=== PATIENT | female | born 1940 | race Asian ===

== ENCOUNTER 2022-08-14 11:52 | Outpatient (CLI) | payer MEDICARE, OTHER, SELFPAY ==
--- NOTE | 2022-08-14 12:00 | CRLHL7_ITS ---
For Patients: As a result of the Century Cures Act, medical imaging exams and procedure reports are released immediately into your electronic medical record. You may view this report before your referring provider. If you have questions, please contact your health care provider. INDICATION: Evaluate for hip fracture. History of right thigh pain. TECHNIQUE: 27 millicuries of technetium-99m labeled MDP has been given intravenously. Three phase bone scan has been performed of the bilateral femurs. FINDINGS: There is symmetric blood flow to the bilateral femurs. No significant abnormal uptake is seen on blood pool imaging. Delayed imaging demonstrates increased activity in the region of the right hip joint. Mild activity in the femoral neck region of the right noted. There is mild activity in the contralateral left hip joint. The remaining visualized right femur is within normal limits. The distal aspect of the femurs has not been imaged bilaterally. IMPRESSION: 1. Negative three-phase bone scan to the bilateral lower extremities. 2. There is increased activity identified in the region of the right hip joint. Finding may all be explained due to degenerative change. This is more prominent on the right than the left. There is mild activity in the femoral neck region on the right. The remaining visualized right femur demonstrates no other abnormal uptake. Dictated by Juni Joseph MD @ 08/14/2022 4:32:49 PM (Electronically Signed)
== END 2022-08-14 11:53 | disposition home or self-care (01) ==
LOC: NM 11:54
PROVIDERS: PCP Internal Medicine; Visit Provider Internal Medicine
DX: M25.551 Pain in right hip (principal)
CPT/HCPCS: 78315; A9503

== ENCOUNTER 2022-09-24 14:09 | Outpatient (CLI) | payer MEDICARE, OTHER, SELFPAY ==
[2022-09-24 17:32] LABS: Chloride* 106 mmol/L (96-114); Sodium* 141 mmol/L (135-149)
[2022-09-24 17:33] LABS: Potassium* 4.7 mmol/L (3.6-5.1)
[2022-09-24 17:35] LABS: Alanine Aminotransferase* 12 U/L (4-35); Alkaline Phosphatase* 57 U/L (40-150); Aspartate Amino Transferase* 24 U/L (12-35); Bilirubin Total* 0.4 mg/dL (0.1-1.5); Blood Urea Nitrogen* 27 mg/dL (7-30); Carbon Dioxide* 30 mmol/L (20-32); Creatinine* 1.1 mg/dL (0.5-1.5); Estimated Glomerular Filt Rate 50 ml/min; Glucose* 93 mg/dL (60-115)
[2022-09-24 17:36] LABS: Calcium* 9.7 mg/dL (8.4-10.6)
== END 2022-09-24 14:10 | disposition home or self-care (01) ==
LOC: NFLDREF 14:10
PROVIDERS: PCP Internal Medicine; Visit Provider Internal Medicine
DX: Z01.818 Encounter for other preprocedural examination (principal)
CPT/HCPCS: 80053

== ENCOUNTER 2022-10-13 10:17 | Outpatient (CLI) | payer MEDICARE, OTHER, SELFPAY | END 2022-10-13 10:18 | disposition home or self-care (01) | PROVIDERS: PCP Internal Medicine; Visit Provider Orthopaedic Surgery Sports Medicine | DX: Z01.818 Encounter for other preprocedural examination (principal) | CPT/HCPCS: 36415; 86850; 86900; 86901 ==

== ENCOUNTER 2022-10-15 06:46 | Day surgery (SDC) | payer MEDICARE, OTHER, SELFPAY ==
--- NOTE | 2022-10-12 12:52 | PT.OPEX ---
PT [place] [facility] PT [facility] Start: 10/11/22 14:56 Freq: Status: Active Protocol: Document 10/11/22 14:59 SHAHBAZ (Rec: 10/11/22 15:03 SHAHBAZ [id number]) E-signed By Stephen Watson DPT, MS Physical Therapy Outpatient Evaluation Insurance Information Recert Due Date 01/09/23 Insurance Name Medicare B,Other; See Comments Insurance Information/Comments Medical Diagnosis Pre-op R JANE Treating Diagnosis R hip pain, decreased R LE ROM , imbalance, gait dysfunction and R LE weakness. Subjective Subjective Pt is an 81 y.o female who presents to PT prior to R anterior JANE on 10/15/22 at [facility] . Describes R hip, groin and thigh pain have gradually increased over the past 18 months. R hip joint space decreased significantly after a fall ~1 month ago. Has felt very weak with decreased energy after an illness 2-3 weeks ago with severe diarrhea but was negative for covid. Uses 4WW on painful days and must limp without an AD. Pt lives with her in a multi-level home with 3 steps with 1 railing to enter her home. Bedroom and bathroom on second level with a railing on the R. Currently performs stairs with step-to pattern. Pt hopes to return to walking for exercise and performing normal daily activities after surgery. PMH includes osteoporosis and R hip OA. AGGR factors: walking, standing, sleeping, stair climbing, uneven surfaces. ALLEV factors: rest, Tylenol, ice. Pain Comments Current Work Status Retired Occupation Retired nurse Preferred Name Ayjanna Precautions Therapy Limitations/Systems Review Not Limited Objective Functional Test Performed & Score LEFS 10 Assessment Assessment/Impression Pt responded well to introduction of pre-op and post-op HEP today with fatigue and no elevation in R hip sxs . Good quality of QS and SLR with pt encouraged to perform her HEP regularly prior to surgery. Good home setup with help available for pt following surgery. She will resume PT following R THAs and we will re-evaluate pt following surgery. Primary Functional Limitations Walking, standing, sleeping, stair climbing, uneven surfaces. Plan of Care Rehabilitation Potential Excellent Physical Therapy Goals Short-term goals to be completed in 1 week: 1. Pt will be independent and compliant with her HEP in preparation for surgery. Coordination/Communication With Referral Source Treatment Plan/Direct Interventions Gait Training,Manual Therapy, Neuromuscular Re-ed, Therapeutic Exercises Frequency/Duration 1 visit prior to surgery then 1-2x per week for least 8-12 visits, decreasing visit frequency as able following surgery. Patient Will Be Discharged From Therapy Completion of LTG(s),Skills Plateau,Independent w/HEP, Independently Progressing Evaluation Billing Untimed Code Treatment Minutes 28 Complexity Moderate Certification Information Initial Certification Date 10/11/22 Ending Certification Date 01/09/23 Provider Signature Shows Agreement With POC & Medical Necessity Physician Signature & Date Requested Please Sign/Date Here Physician Comment/Change : Physician NPI Number #
[2022-10-15] VITALS (30 sets, daily range): BP systolic 110–149; BP diastolic 62–88; PULSE 61–79; RESP 10–20; TEMP 35.7–36.6; O2SAT 83–99; BMI 24.0
[2022-10-15] MEDS: OXYCODONE (CR) 10 MG TAB.ER.12H PO (07:10)
[2022-10-15] MEDS: ACETAMINOPHEN 500 MG TABLET 1000 MG PO ×2 (07:10→16:57)
[2022-10-15] MEDS: CELECOXIB 200 MG CAPSULE PO ×2 (07:10→20:42)
[2022-10-15] MEDS: SODIUM CHLORIDE 0.9 % (FLUSH) 10 ML SYRINGE IVF (07:15)
[2022-10-15] MEDS: LACTATED RINGERS 1000 ML 1,000 ML 100 ML IV ×2 (07:15→10:08)
--- NOTE | 2022-10-15 07:27 | CRLHL7_ITS ---
For Patients: As a result of the Cures Act, medical imaging exams and procedure reports are released immediately into your electronic medical record. You may view this report before your referring provider. If you have questions, please contact your health care provider. Indication: POST OP RIGHT TOTAL HIP Technique: AP hip center pelvis and lateral view right hip Findings/Impression: Hardware from a right total hip arthroplasty is in satisfactory position. Bone alignment is normal. No sign of acute fracture. Postop changes are within normal limits. Dictated by Renato Fletcher MD @ 10/15/2022 1:15:48 PM (Electronically Signed)
--- NOTE | 2022-10-15 08:15 | CRLHL7_ITS ---
For Patients: As a result of the Cures Act, medical imaging exams and procedure reports are released immediately into your electronic medical record. You may view this report before your referring provider. If you have questions, please contact your health care provider. Indication: Hip replacement surgery Technique: AP hip fluoroscopic image. Fluoroscopy time 52.1 seconds. Findings/Impression: Hardware from a right total hip arthroplasty is in satisfactory position. Dictated by Renato Fletcher MD @ 10/16/2022 9:24:58 AM (Electronically Signed)
[2022-10-15] MEDS: MIDAZOLAM HCL 1 MG/ML inj IVP (08:26)
[2022-10-15] MEDS: fentaNYL 100 MCG/2 ML inj IVP (08:26)
--- NOTE | 2022-10-15 08:35 | SUR.PREOP ---
TIME?OUT:?0825 PT/Neil ARMANDO RN/Hunter VELEZ MDA?VERIFICATION?OF?SURGICAL?SITE,?PROCEDURE,?AND?CONSENT OBTAINED?PRIOR?TO?INVASIVE?PROCEDURE.
[2022-10-15] MEDS: CEFAZOLIN 2 GM in 0.9 % SODIUM CHLORIDE Mini-bag 100 ML IVPB (09:49)
[2022-10-15] MEDS: TRANEXAMIC ACID 100 MG/ML INJ 1000 MG IV (09:53)
--- NOTE | 2022-10-15 11:02 | P.NB_ITS ---
Nerve Block Nerve Block Time Seen by Provider: 08:30 Date Seen: 10/15/22 Type of block requested by surgeon for post-operative analgesia: JACK/LFCN Side: right Time out performed: Yes Verification of patient name: Yes Verification of date of : Yes Site marking: site marked Name of person performing procedure: Jordan Continuous monitoring Was continuous monitoring of O2 sat, B/P, engine monitor, recorded every 15 minutes?: Yes Procedure Checklist: sterile prep, needles and gloves Ultrasound guided. Images saved: Yes Medications given in 5ml increments after negative aspiration: Ropivicaine %: 0.5 mL: 30 Needle gauge: 20 Decadron (mg): 10 Precedex (mcg): 25 Patient tolerated procedure well: Yes Additional comments: Needle noted below psoas tendon needle noted adjacent to LFCN Block Charges Block Charge (with Pro Fee): Other Periph Nerve Block Use of Ultrasound Machine for Block: Yes- US Guidance/pain block
--- NOTE | 2022-10-15 11:59 | W.ANESCHARGE ---
Anesthesia Charges Start Date/Time Anesthesia Start Date: 10/15/22 Anesthesia Start Time: 09:39 Stop Date/Time Anesthesia Stop Date: 10/15/22 Anesthesia Stop Time: 11:58
--- NOTE | 2022-10-15 11:59 | W.ANESCHARGE ---
Anesthesia Charges Start Date/Time Anesthesia Start Date: 10/15/22 Anesthesia Start Time: 09:39 Stop Date/Time Anesthesia Stop Date: 10/15/22 Anesthesia Stop Time: 11:58 Summary Extremes of Age - Over 70 or under 1: MDA
[2022-10-15] MEDS: LACTATED RINGERS 1000 ML 1,000 ML 35 ML IV (12:44)
--- NOTE | 2022-10-15 15:18 | P.IMCN_ITS ---
Date of Consult Consult date: 10/15/22 Requesting Physician: Orthopedics Primary Care Provider: Cris Puente MD Consult Narrative Reason for consult: 82-year-old female seen for management of medical problems after surgery Narrative: Deana Miles is a 82 year old female underwent right total hip arthroplasty today with Dr. Banks. Postoperatively she reports doing fairly well. She has quite a bit of numbness in her right leg from a nerve block. She reports minimal pain. No nausea, dyspnea, chills. Preoperatively she reports her generally doing well except for longstanding right hip pain which caused her to limp when she walked. She also had a recent gastrointestinal illness that resolved itself in the last 2 days. She had nausea and watery diarrhea. She had 1 emesis. No significant abdominal pain She reports in the last 2 days she has been eating normally and had has had normal bowel function. No blood in her stool. No previous history of gastrointestinal problems. Preop physical identified no significant perioperative concerns. Previous surgery was laparoscopy for infertility about 50 years ago. She thinks she had adverse reaction to anesthesia at that time. She also had a tonsillectomy. No history of bleeding or clotting problems. Review of Systems Narrative: Patient reports doing well at the time I see her. No other recent concerns except as noted above. PFSH [facility] Medical History (Updated 10/15/22 @ 15:38 by Redd Andujar MD) Atrophic vaginitis Diarrhea Glaucoma (2019) Hyperlipidemia Lumbar degenerative disc disease Osteoporosis Surgical History H/O laparoscopy History of tonsillectomy (03/27/12) History of total right hip arthroplasty Family History Father Heart problem COPD (chronic obstructive pulmonary disease) Mother Heart problem Brother Aortic valve replaced Kidney disease Sister Lupus Social History (Updated 10/15/22 @ 15:36 by Redd Andujar MD) Narrative: She lives with her in [place]. They have a house with multiple levels. One step to get into the house from the garage. Three steps to get from the entry to the kitchen. Nine steps to get from the kitchen to the bedroom and bathroom. She does not smoke. She rarely drinks alcohol. No recreational drug use. is healthcare power of insurance attorney. Code status is full Smoking Status: Never smoker Do you use any of these nicotine containing products: None How often do you have a drink containing alcohol: 2-4 times a month Alcohol type: beer How many standard drinks containing alcohol do you have on a typical day: 1 or 2 AUDIT-C Alcohol total score: 2 Non-prescribed substance use: denies use Caffeine: Yes (coffee, 1-2 cups/day) Little interest or pleasure in doing things: several days Feeling down, depressed, or hopeless: several days Meds Home Medications and Allergies Home Medications Medication Instructions Recorded Confirmed Type biotin 5,000 mcg sublingual tablet 5,000 mcg sublingual QDAY 07/24/22 10/15/22 History brimonidine 0.15 % eye drops 1 drp ophthalmic (eye) BID 07/24/22 10/15/22 History calcium carbonate 500 mg calcium 500 mg PO DAILY 07/24/22 10/15/22 History (1,250 mg) chewable tablet (Calcium 500) dorzolamide 22.3 mg-timolol 6.8 1 drp ophthalmic (eye) BID 07/24/22 10/15/22 History mg/mL eye drops latanoprost 0.005 % eye drops 1 drp ophthalmic (eye) HS 07/24/22 10/15/22 History estradiol 10 mcg vaginal tablet 10 mcg vaginal 2XW PRN 07/31/22 10/15/22 History (Yuvafem) alendronate 70 mg tablet 70 mg PO .WEEKLY 10/11/22 10/15/22 History Allergies Allergy/AdvReac Type Severity Reaction Status Date / Time Sulfa (Sulfonamide Allergy shock Verified 10/15/22 07:01 Antibiotics) Exam Narrative: Exam Narrative: She is alert pleasant and appears in no distress. She gives her own history. Eyes normal. Oropharynx normal. Neck is supple without mass or adenopathy. Respirations are clear to auscultation. Cardiovascular: S1, S2, regular rate and rhythm. No murmur gallop or rub. Abdomen: Bowel sounds active. Abdomen is soft without tenderness or mass. She has diminished sensation in her right thigh and leg. She moves her foot and ankle on the right normally. Intact pulses bilaterally. No edema. Const: Vital Signs, click to edit/add: Vital Signs - 24 hr 10/15/22 07:21 02/06/23 08:27 10/15/22 08:30 Temperature 97.9 F Pulse Rate 70 67 61 Pulse Rate [Pulse Oximeter] Respiratory Rate 16 16 16 Blood Pressure 130/74 131/78 132/74 Blood Pressure [AR M LEFT] Pulse Oximetry 95 99 99 Oxygen Delivery Me thod Room Air Nasal Cannula Nasal Cannula Oxygen Flow Rate 2 2 10/15/22 08:45 10/15/22 11:55 10/15/22 12:00 Temperature 96.9 F L Pulse Rate 63 64 64 Pulse Rate [Pulse Oximeter] Respiratory Rate 16 14 18 Blood Pressure 111/67 134/81 121/77 Blood Pressure [AR M LEFT] Pulse Oximetry 96 91 91 Oxygen Delivery Me thod Nasal Cannula Room Air Oxygen Flow Rate 2 10/15/22 12:05 10/15/22 12:10 10/15/22 12:15 Temperature Pulse Rate 64 66 67 Pulse Rate [Pulse Oximeter] Respiratory Rate 14 16 20 Blood Pressure 115/75 121/75 120/78 Blood Pressure [AR M LEFT] Pulse Oximetry 90 90 97 Oxygen Delivery Me thod Oxygen Flow Rate 10/15/22 12:20 10/15/22 12:25 10/15/22 12:35 Temperature 96.5 F L Pulse Rate 65 64 67 Pulse Rate [Pulse Oximeter] Respiratory Rate 10 L 13 14 Blood Pressure 120/80 119/78 126/76 Blood Pressure [AR M LEFT] Pulse Oximetry 91 91 90 Oxygen Delivery Me thod Oxygen Flow Rate 10/15/22 12:45 10/15/22 12:55 10/15/22 13:19 Temperature 96.2 F L Pulse Rate 69 62 Pulse Rate [Pulse Oximeter] 67 Respiratory Rate 13 12 16 Blood Pressure 117/71 135/82 Blood Pressure [AR M LEFT] 143/83 H Pulse Oximetry 91 90 90 Oxygen Delivery Me thod Room Air Oxygen Flow Rate 10/15/22 14:04 10/15/22 13:05 10/15/22 13:15 Temperature 96.2 F L Pulse Rate 62 Pulse Rate [Pulse Oximeter] 64 66 Respiratory Rate 16 16 14 Blood Pressure Blood Pressure [AR M LEFT] 132/85 143/83 H 140/80 H Pulse Oximetry 95 89 Oxygen Delivery Me thod Nasal Cannula Room Air Room Air Oxygen Flow Rate 1 2 10/15/22 13:30 10/15/22 13:45 10/15/22 14:15 Temperature Pulse Rate Pulse Rate [Pulse Oximeter] 68 72 70 Respiratory Rate 16 16 16 Blood Pressure Blood Pressure [AR M LEFT] 143/88 H 141/76 H 132/85 Pulse Oximetry 88 92 94 Oxygen Delivery Me thod Nasal Cannula Nasal Cannula Nasal Cannula Oxygen Flow Rate 1 1 1 10/15/22 14:35 Temperature Pulse Rate Pulse Rate [Pulse Oximeter] 70 Respiratory Rate 16 Blood Pressure Blood Pressure [AR M LEFT] 145/81 H Pulse Oximetry 95 Oxygen Delivery Me thod Nasal Cannula Oxygen Flow Rate 1 Documenting provider has reviewed patient's vital signs: yes Assessment and Plan Assessment and plan (1) History of total right hip arthroplasty: Problem comment: 10/15/22 Status: Acute (2) Osteoarthritis of right hip: Problem comment: progressed to severe, [id number] Status: Chronic (3) Diarrhea: Problem comment: Diarrhea illness for 2 weeks prior to surgery 10/15/2022. Symptoms resolved 2 days prior to surgery. Status: Acute Plan Provided routine postoperative pain management and therapy. Anticipate discharge to home tomorrow. Will need to address mobility in her home which requires doing steps. Monitor for gastrointestinal issues with her recent history of diarrheal illness. Total time spent is 45 minutes, 30 minutes in coordination of care discussing with patient and and other providers ongoing postoperative management.
[2022-10-15] MEDS: CEFAZOLIN 1 GM in 0.9 % SODIUM CHLORIDE Mini-bag 100 ML IVPB (17:06)
[2022-10-15] MEDS: SENNOSIDES 1 TAB TABLET 2 TAB PO (20:42)
[2022-10-15] MEDS: LACTATED RINGERS 1000 ML 1,000 ML 75 ML IV (20:44)
[2022-10-15] MEDS: DORZOLAMIDE/TIMOLOL 2-0.5% OPHTH 1 DROP EYE-BOTH (20:44)
[2022-10-15] MEDS: BRIMONIDINE 0.15% EYE-BOTH (20:44)
[2022-10-15] MEDS: EYE EYE-BOTH (20:44)
[2022-10-15] MEDS: LATANOPROST 0.005% OPHTH 1 DROP EYE-BOTH (20:44)
[2022-10-16] MEDS: CEFAZOLIN 1 GM in 0.9 % SODIUM CHLORIDE Mini-bag 100 ML IVPB ×2 (00:10→10:01)
[2022-10-16] MEDS: ACETAMINOPHEN 500 MG TABLET 1000 MG PO (02:46)
[2022-10-16 03:00] VITALS: BP 108/58; PULSE 73; RESP 18; TEMP 36.5; O2SAT 93
[2022-10-16 06:40] LABS: Hematocrit 31.9 % (33.0-51.0); Hemoglobin* 10.4 gm/dL (12.0-16.0); Immature Granulocytes Pct Auto 0.4 %; Lymphocytes Percent Auto 4.4 % (20-44); Mean Corpuscular HGB Conc 33 gm/dL (32-36); Mean Corpuscular Hemoglobin 29 pg (26-34); Mean Corpuscular Volume 89 fL (80-100); Monocytes Percent Auto 9.6 % (0.0-11.0); Neutrophils Percent Auto 85.6 % (42.0-72.0); Platelet Count* 194 K/uL (140-440); RDW Coefficient of Variation % 13.5 % (11.5-15.5); Red Blood Count 3.57 m/uL (4.00-5.20); White Blood Count* 13.58 K/uL (4.50-11.00)
[2022-10-16 06:43] LABS: Slide Review Reflex No
[2022-10-16 06:53] LABS: Potassium* 4.1 mmol/L (3.6-5.1); Sodium* 136 mmol/L (135-149)
[2022-10-16 06:56] LABS: Blood Urea Nitrogen* 19 mg/dL (7-30); Estimated Glomerular Filt Rate 56 ml/min
--- NOTE | 2022-10-16 07:31 | PC.NURSE ---
Shift note: Pt is pleasant and cooperate with treatment. Hesitant to take pain medication, rate pain level between 2 and 4. Dressing appears clean and dry. A1 with walker and GB to bedside commode. Saline locked.
[2022-10-16 07:45] VITALS: BP 95/56; PULSE 88; PULSE 97; RESP 16; TEMP 36.6; O2SAT 97
--- NOTE | 2022-10-16 09:07 | PM.ORPRC ---
Procedure Note Date of procedure: 10/15/22 Procedure: PREOPERATIVE DIAGNOSIS: 1. Right hip osteoarthritis, severe, primary POSTOPERATIVE DIAGNOSIS: 1. Right hip osteoarthritis, severe, primary PROCEDURE: 1. Right total hip arthroplasty-anterior approach 2. 41194 - intraoperative fluoroscopy up to 1 hour. SURGEON: Kp Banks MD. MURAL PAINTER: Virgilio Wall PA-C; SILVIA Kay - Of note, a skilled field administrative assistant was critical for this case to aid in patient positioning, tissue retraction, limb manipulation/positioning, and closure. ANESTHESIA: Spinal anesthetic EBL: 300 mL IMPLANTS: DePuy J&J uncemented total hip [place] cup size 50, single cancellous acetabular screw, hole eliminator, +0 neutral liner Actis stem, high offset, size 5 +1 mm ceramic 32mm head COMPLICATIONS: None evident INDICATIONS: The patient is a pleasant 82-year-old female who has experienced severe right hip pain and difficulty bearing weight. Workup included x-rays which revealed severe osteoarthrosis in the hip. Given the deformity, the dysfunction, and the pain, as well as the failure of nonoperative management, recommendation was made for surgery. FINDINGS: Large effusion upon entering the joint. Full-thickness chondral loss femoral head broadly. Osteophytes around the acetabulum including inferiorly as well as femoral head/neck junction. DESCRIPTION OF PROCEDURE: Following a thorough discussion of risks, benefits, and alternatives consent was obtained and the right hip was marked. The patient was brought to the operating room and placed supine on the operating table. Induction of anesthesia was undertaken. 1 g IV Ancef and 1 g tranexamic acid was administered within 1 hr of incision preoperatively. Proper time-out was performed identifying proper patient, site, procedure. The operative extremity was prepped and draped in the appropriate sterile fashion using ChloraPrep after the patient was positioned on the Hoffman table with head in neutral alignment and all bony prominences well padded. C-arm fluoroscopic imaging was utilized to confirm proper pelvis rotation and position, and to get true AP films of both the contralateral left, and the affected right hip. This is for comparison. A longitudinal incision was made starting approximately 1 cm distal to the ASIS, and 3-4 cm lateral. The incision was extended distally aiming toward the lateral border the patella. Sharp incision through skin and bovie cautery through the subcutaneous tissue allowed identification of the TFL fascia. This was sharply divided, and the fascia bluntly released from the muscle fibers as we dissected medial. Upon coming to the medial border, we were able to retract the TFL laterally, and penetrated the deeper fascia and identify the crossing circumflex vessels. These were ligated/cauterized. The rectus was elevated from the capsule, and retractors placed laterally and medially along the femoral neck to help with visualization of the capsule. We then performed an inverted T capsulotomy. The capsule was tagged for later repair. Retractors were placed inside the capsule. The femoral neck was visualized after releasing medially down to the lesser trochanter, along the saddle laterally, and up onto the acetabulum. The femoral neck cut was made in line with our preoperative templating. The head was removed in a single piece, and sized. We turned our attention to acetabular preparation. Initially, the labrum was resected from around the perimeter, the pulvinar was excised, allowing us to visualize the false wall. We started the reaming with a 43 mm reamer. This was medialized down to the true wall. We then enlarged our reamers sequentially up to one size less than the selected cup size. We trialed at the same size and found it to have an excellent fit. The selected cup was then opened, inserted, and impacted in line with the goal of 40? of abduction, and 20-25? of anteversion. This was confirmed on C-arm fluoroscopic imaging to be in the appropriate/goal position. Once the cup was placed we placed a hole eliminator and a liner consistent with preop planning. Attention was turned to the femoral preparation. The limb was extended, externally rotated, and adducted. The posteromedial capsule was released, as retractors were placed allowing excellent access to the proximal femur. Initially a snuff box finisher was followed by canal finder followed by various broaches. We broached sequentially up to the size noted above, found it to have excellent rotational control, and trialing various heads and necks, revealed that appropriate neck offset, and the above noted head size provided the greatest stability, and tenriism of length, and offset. C-arm fluoroscopic imaging confirmed position of the stem, as well as leg lengths, which were compared with the pre procedure all fluoroscopic images. Trial implants were removed, the real femoral stem inserted, as was the appropriate head. After reducing, the leg was placed through range of motion and stability was confirmed anterior, posterior, and lateral. A 3 min Betadine soak was then performed, and thorough irrigation with normal saline followed. Closure of the capsule was performed with #1 PDS. Bleeding was confirmed to be controlled at this stage, and the TFL fascia was closed with #0 strata fix. Subcutaneous, and subcuticular closure was performed with 2-0 Vicryl and 4-0 Monocryl, respectively. Dressings were applied, and the patient was awoken from anesthesia and transferred the PACU in stable condition. A skilled field administrative assistant was critical for this case to aid in patient positioning, tissue retraction, acetabular and proximal femoral exposure, limb manipulation/positioning, dislocation/relocation, patient safety, and closure. PLAN: 1. Weight bear as tolerated operative extremity. 2. 23 hr perioperative antibiotics. 3. Ice. 4. PT/OT consults for ambulation assistance/mobility education. 5. Social work consult for discharge planning. 6. DVT prophylaxis with at SCDs, Naun Mo[place]e, and Xarelto x5 days followed by aspirin for a total of 1 month..
[2022-10-16] MEDS: RIVAROXABAN 10 MG TABLET PO (10:03)
[2022-10-16] MEDS: DORZOLAMIDE/TIMOLOL 2-0.5% OPHTH 1 DROP EYE-BOTH (10:05)
[2022-10-16] MEDS: CELECOXIB 200 MG CAPSULE PO (10:06)
[2022-10-16] MEDS: EYE EYE-BOTH (10:10)
[2022-10-16] MEDS: BRIMONIDINE 0.15% EYE-BOTH (10:10)
[2022-10-16 11:00] VITALS: BP 101/55; PULSE 84; RESP 16; O2SAT 95
--- NOTE | 2022-10-16 11:01 | PM.IMPN1 ---
Progress Note: A&P Assessment and plan (1) History of total right hip arthroplasty: Problem details: JANE-AA (10/15/2022, Dr. Banks) Status: Acute (2) Diarrhea: Problem details: Diarrhea illness for 2 weeks prior to surgery 10/15/2022. Symptoms resolved 2 days prior to surgery. Status: Acute Plan 82-year-old doing very well after right total hip arthroplasty. She is doing well with therapy and motivated to go home today. While blood pressure is soft, she notes that it normally runs this way at home. We discussed bowel movements, recent GI illness, pain control, and keeping up with fluids. Subjective Time Seen by Provider: 10:04 Date Seen: 10/16/22 Interval history: Raven's blood pressure is a little lower today. She says she is a little lightheaded, but thinks that is not from blood pressure, but instead from not getting enough sleep last night. She said overall she feels really well and her blood pressure sometimes runs that at home as well. She has not been eating much pain medication and she is doing well in therapy today. Exam Narrative: Exam Narrative: General: No acute distress. Awake, alert, oriented x3. Mild pallor. No jaundice. Oropharynx: Clear. Mucous membranes moist. Cardiovascular: Regular rate and rhythm. No murmurs, gallops, or rubs. Respiratory: Clear to auscultation bilaterally. No wheezes or crackles. Const: Vital Signs, click to edit/add: Vital Signs - 24 hr 10/15/22 11:55 10/15/22 12:00 10/15/22 12:05 Temperature 96.9 F L Pulse Rate 64 64 64 Pulse Rate [Left A pical] Pulse Rate [Pulse Oximeter] Respiratory Rate 14 18 14 Blood Pressure 134/81 121/77 115/75 Blood Pressure [AR M LEFT] Pulse Oximetry 91 91 90 Oxygen Delivery Me thod Room Air Oxygen Flow Rate 10/15/22 12:10 10/15/22 12:15 10/15/22 12:20 Temperature Pulse Rate 66 67 65 Pulse Rate [Left A pical] Pulse Rate [Pulse Oximeter] Respiratory Rate 16 20 10 L Blood Pressure 121/75 120/78 120/80 Blood Pressure [AR M LEFT] Pulse Oximetry 90 97 91 Oxygen Delivery Me thod Oxygen Flow Rate 10/15/22 12:25 10/15/22 12:35 10/15/22 12:45 Temperature 96.5 F L Pulse Rate 64 67 69 Pulse Rate [Left A pical] Pulse Rate [Pulse Oximeter] Respiratory Rate 13 14 13 Blood Pressure 119/78 126/76 117/71 Blood Pressure [AR M LEFT] Pulse Oximetry 91 90 91 Oxygen Delivery Me thod Oxygen Flow Rate 10/15/22 12:55 10/15/22 13:19 10/15/22 14:04 Temperature 96.2 F L Pulse Rate 62 Pulse Rate [Left A pical] Pulse Rate [Pulse Oximeter] 67 64 Respiratory Rate 12 16 16 Blood Pressure 135/82 Blood Pressure [AR M LEFT] 143/83 H 132/85 Pulse Oximetry 90 90 95 Oxygen Delivery Me thod Room Air Nasal Cannula Oxygen Flow Rate 1 10/15/22 13:05 10/15/22 13:15 10/15/22 13:30 Temperature 96.2 F L Pulse Rate 62 Pulse Rate [Left A pical] Pulse Rate [Pulse Oximeter] 66 68 Respiratory Rate 16 14 16 Blood Pressure Blood Pressure [AR M LEFT] 143/83 H 140/80 H 143/88 H Pulse Oximetry 89 88 Oxygen Delivery Me thod Room Air Room Air Nasal Cannula Oxygen Flow Rate 2 1 10/15/22 13:45 10/15/22 14:15 10/15/22 14:35 Temperature Pulse Rate Pulse Rate [Left A pical] Pulse Rate [Pulse Oximeter] 72 70 70 Respiratory Rate 16 16 16 Blood Pressure Blood Pressure [AR M LEFT] 141/76 H 132/85 145/81 H Pulse Oximetry 92 94 95 Oxygen Delivery Me thod Nasal Cannula Nasal Cannula Nasal Cannula Oxygen Flow Rate 1 1 1 10/15/22 17:29 10/15/22 15:00 10/15/22 15:33 Temperature Pulse Rate Pulse Rate [Left A pical] Pulse Rate [Pulse Oximeter] 75 79 69 Respiratory Rate 18 Blood Pressure Blood Pressure [AR M LEFT] 139/62 149/81 H Pulse Oximetry 96 Oxygen Delivery Me thod Nasal Cannula Nasal Cannula Oxygen Flow Rate 1 1 10/15/22 16:07 10/15/22 16:31 10/15/22 17:00 Temperature 97.4 F L Pulse Rate Pulse Rate [Left A pical] Pulse Rate [Pulse Oximeter] 62 63 75 Respiratory Rate 16 18 Blood Pressure Blood Pressure [AR M LEFT] 138/68 140/77 H 145/84 H Pulse Oximetry 96 93 Oxygen Delivery Me thod Nasal Cannula Nasal Cannula Nasal Cannula Oxygen Flow Rate 1 1 1 10/15/22 20:25 10/15/22 23:00 10/16/22 03:00 Temperature 97.3 F L 96.9 F L 97.7 F Pulse Rate Pulse Rate [Left A pical] Pulse Rate [Pulse Oximeter] 75 63 73 Respiratory Rate 18 18 18 Blood Pressure Blood Pressure [AR M LEFT] 110/66 111/62 108/58 L Pulse Oximetry 83 L 93 93 Oxygen Delivery Me thod Room Air Nasal Can nula Room Air Room Air Oxygen Flow Rate 10/16/22 07:45 Temperature 97.8 F Pulse Rate Pulse Rate [Left A pical] 88 Pulse Rate [Pulse Oximeter] 97 Respiratory Rate 16 Blood Pressure Blood Pressure [AR M LEFT] 95/56 L Pulse Oximetry 97 Oxygen Delivery Me thod Room Air Oxygen Flow Rate Labs Labs: Laboratory Results - last 24 hr 10/16/22 10/16/22 05:50 05:50 WBC 13.58 H RBC 3.57 L Hgb 10.4 L Hct 31.9 L MCV 89 MCH 29 MCHC 33 RDW Coeff of Derrick 13.5 Plt Count 194 Neut % (Auto) 85.6 H Lymph % (Auto) 4.4 L [place] % (Auto) 9.6 Eos % (Auto) 0.0 Baso % (Auto) 0.0 Neut # (Auto) 11.60 H Lymph # (Auto) 0.60 L [place] # (Auto) 1.30 H Eos # (Auto) 0.00 Baso # (Auto) 0.00 Sodium 136 Potassium 4.1 BUN 19 Creatinine 1.0 Estimated Creat Clear 31.60 Estimated GFR 56
--- NOTE | 2022-10-16 11:10 | PC.SOCIAL ---
Pt. plans to discharge home with spouse support. Pt. did well with therapy no additional resources needed at discharge.
[2022-10-16 11:24] VITALS: BP 135/82; PULSE 62; RESP 16; TEMP 36.6
--- NOTE | 2022-10-16 12:23 | PM.ORPN ---
Subjective Subjective Date Seen: 10/16/22 Principal diagnosis: Status postop day 1, right total hip arthroplasty - anterior approach Interval history: Patient reports doing well. No acute events over night. She comments that her right leg felt wobbly yesterday, and her right knee felt as if it could give out. Pain managed with scheduled /PRN medications and ice - she denies needing oxycodone. DVT prophylaxis rivaroxaban, bilateral knee high Naun stockings, and SCDs. Denies fevers, chills, aches, N/V, CP, SOB/ROCHA, or lightheadedness. Ortho Exam Narrative Exam Narrative: -Patient appears comfortable in bed; no apparent acute distress. She is working with occupational therapy -Alert and oriented times 3 -Operative hip swollen; soft tissues supple; no obvious erythema. Ecchymosis minimal. Warmth appropriate -Surgical dressing clean, dry, intact; no obvious drainage, no erythematous streaking peripheral to the bandage -Bilateral calves soft and supple; no significant swelling, edema, tenderness, erythema, discoloration, warmth, or palpable cords -2+ DP/PT pulses, intact dermatomes and myotomes distally (5/5 strength). Positive numbness about the lateral femoral cutaneous nerve distribution. -right knee feels stable to varus and valgus stress, mild warmth, mild swelling, likely residual from the hip swelling. No pain to palpation throughout the knee. Const Vital Signs, click to edit/add: Vital Signs - 24 hr 10/15/22 12:25 10/15/22 12:35 10/15/22 12:45 Temperature 96.5 F L Pulse Rate 64 67 69 Pulse Rate [Left Apical] Pulse Rate [Pulse Oximeter] Respiratory Rate 13 14 13 Blood Pressure 119/78 126/76 117/71 Blood Pressure [ARM LEFT] Pulse Oximetry 91 90 91 Oxygen Delivery Method Oxygen Flow Rate 10/15/22 12:55 10/15/22 13:19 10/15/22 14:04 Temperature 96.2 F L Pulse Rate 62 Pulse Rate [Left Apical] Pulse Rate [Pulse Oximeter] 67 64 Respiratory Rate 12 16 16 Blood Pressure 135/82 Blood Pressure [ARM LEFT] 143/83 H 132/85 Pulse Oximetry 90 90 95 Oxygen Delivery Method Room Air Nasal Cannula Oxygen Flow Rate 1 10/15/22 13:05 10/15/22 13:15 10/15/22 13:30 Temperature 96.2 F L Pulse Rate 62 Pulse Rate [Left Apical] Pulse Rate [Pulse Oximeter] 66 68 Respiratory Rate 16 14 16 Blood Pressure Blood Pressure [ARM LEFT] 143/83 H 140/80 H 143/88 H Pulse Oximetry 89 88 Oxygen Delivery Method Room Air Room Air Nasal Cannula Oxygen Flow Rate 2 1 10/15/22 13:45 10/15/22 14:15 10/15/22 14:35 Temperature Pulse Rate Pulse Rate [Left Apical] Pulse Rate [Pulse Oximeter] 72 70 70 Respiratory Rate 16 16 16 Blood Pressure Blood Pressure [ARM LEFT] 141/76 H 132/85 145/81 H Pulse Oximetry 92 94 95 Oxygen Delivery Method Nasal Cannula Nasal Cannula Nasal Cannula Oxygen Flow Rate 1 1 1 10/15/22 17:29 10/15/22 15:00 10/15/22 15:33 Temperature Pulse Rate Pulse Rate [Left Apical] Pulse Rate [Pulse Oximeter] 75 79 69 Respiratory Rate 18 Blood Pressure Blood Pressure [ARM LEFT] 139/62 149/81 H Pulse Oximetry 96 Oxygen Delivery Method Nasal Cannula Nasal Cannula Oxygen Flow Rate 1 1 10/15/22 16:07 10/15/22 16:31 10/15/22 17:00 Temperature 97.4 F L Pulse Rate Pulse Rate [Left Apical] Pulse Rate [Pulse Oximeter] 62 63 75 Respiratory Rate 16 18 Blood Pressure Blood Pressure [ARM LEFT] 138/68 140/77 H 145/84 H Pulse Oximetry 96 93 Oxygen Delivery Method Nasal Cannula Nasal Cannula Nasal Cannula Oxygen Flow Rate 1 1 1 10/15/22 20:25 10/15/22 23:00 10/16/22 03:00 Temperature 97.3 F L 96.9 F L 97.7 F Pulse Rate Pulse Rate [Left Apical] Pulse Rate [Pulse Oximeter] 75 63 73 Respiratory Rate 18 18 18 Blood Pressure Blood Pressure [ARM LEFT] 110/66 111/62 108/58 L Pulse Oximetry 83 L 93 93 Oxygen Delivery Method Room Air Nasal Cannula Room Air Room Air Oxygen Flow Rate 10/16/22 07:45 10/16/22 11:24 10/16/22 11:00 Temperature 97.8 F 97.8 F Pulse Rate 62 Pulse Rate [Left Apical] 88 84 Pulse Rate [Pulse Oximeter] 97 84 Respiratory Rate 16 16 16 Blood Pressure 135/82 Blood Pressure [ARM LEFT] 95/56 L 101/55 L Pulse Oximetry 97 95 Oxygen Delivery Method Room Air Room Air Oxygen Flow Rate Assessment and Plan Assessment and plan (1) History of total right hip arthroplasty: Problem details: POD 1 right JANE-AA (10/15/2022, Dr. Banks) Status: Acute (2) Diarrhea: Problem details: Diarrhea illness for 2 weeks prior to surgery 10/15/2022. Symptoms resolved 2 days prior to surgery. Status: Acute Plan - Complete 23 hour perioperative antibiotics. - PT/OT consult for education and assistance. - Social work consult for discharge planning - Prescribed analgesics as needed - DVT prophylaxis: Rivaroxaban, bilateral knee high Naun Hose stockings and SCDs - Anticipation is for discharge to home with spouse today 10/16/2022 if the patient remains medically stable, pain is controlled, and they are safe with mobilization.
--- NOTE | 2022-10-16 12:26 | PM.DS1 ---
DS: Providers Provider Date Seen: 10/16/22 Date of admission: Med/Surg Recovery 10/15/2022 Primary care physician: Cris Puente MD Consults: 10/15/22 13:04 Consult to Occupational Therapy [CONS] Routine Comment: Reason(s) for OT Consult:: ADLs Prior to Discharge Any Restrictions?:: No Restrictions Comment: Consult to Physical Therapy [CONS] Routine Comment: Ambulate in the choudhary today Reason(s) for PT Consult:: Evaluate and Treat Any Restrictions?:: No Restrictions Comment: Nursing Activity Consult to Physician [CONS] Routine Comment: Consulting Provider: Hospitalists Has provider been notified: No Consult to [employer] [CONS] Routine Comment: Reason for Consult:: Discharge Planning Needs Attending Physician on discharge: Kp Banks MD Date of Discharge: 10/16/22 DS: Diagnosis Discharge Diagnosis (1) History of total right hip arthroplasty: Status: Acute Problem details: POD 1 right JANE-AA (10/15/2022, Dr. Banks) DS: Summary Hospital Course Hospital Course: The patient has a history of right hip osteoarthritis, primary, severe. After appropriate preoperative evaluation, the patient underwent right total hip arthroplasty. Postoperatively given anticoagulation for deep vein thrombosis prophylaxis. They progressed to PT/OT and were felt ready and prepared for discharge to home with appropriate pain medication and anticoagulation medications. Status at Discharge Functional status at discharge: uses cane/walker Overall status at discharge: patient is progressing back to baseline Time Spent with Patient Time attestation: Total time spent providing and/or coordinating discharge services: Time spent: Less than 30 minutes Exam Const: Vital Signs, click to edit/add: Vital Signs - 24 hr 10/15/22 12:35 10/15/22 12:45 10/15/22 12:55 Temperature Pulse Rate 67 69 62 Pulse Rate [Left A pical] Pulse Rate [Pulse Oximeter] Respiratory Rate 14 13 12 Blood Pressure 126/76 117/71 135/82 Blood Pressure [AR M LEFT] Pulse Oximetry 90 91 90 Oxygen Delivery Me thod Oxygen Flow Rate 10/15/22 13:19 10/15/22 14:04 10/15/22 13:05 Temperature 96.2 F L 96.2 F L Pulse Rate 62 Pulse Rate [Left A pical] Pulse Rate [Pulse Oximeter] 67 64 Respiratory Rate 16 16 16 Blood Pressure Blood Pressure [AR M LEFT] 143/83 H 132/85 143/83 H Pulse Oximetry 90 95 Oxygen Delivery Me thod Room Air Nasal Cannula Room Air Oxygen Flow Rate 1 2 10/15/22 13:15 10/15/22 13:30 10/15/22 13:45 Temperature Pulse Rate Pulse Rate [Left A pical] Pulse Rate [Pulse Oximeter] 66 68 72 Respiratory Rate 14 16 16 Blood Pressure Blood Pressure [AR M LEFT] 140/80 H 143/88 H 141/76 H Pulse Oximetry 89 88 92 Oxygen Delivery Me thod Room Air Nasal Cannula Nasal Cannula Oxygen Flow Rate 1 1 10/15/22 14:15 10/15/22 14:35 10/15/22 17:29 Temperature Pulse Rate Pulse Rate [Left A pical] Pulse Rate [Pulse Oximeter] 70 70 75 Respiratory Rate 16 16 18 Blood Pressure Blood Pressure [AR M LEFT] 132/85 145/81 H Pulse Oximetry 94 95 Oxygen Delivery Me thod Nasal Cannula Nasal Cannula Oxygen Flow Rate 1 1 10/15/22 15:00 10/15/22 15:33 10/15/22 16:07 Temperature 97.4 F L Pulse Rate Pulse Rate [Left A pical] Pulse Rate [Pulse Oximeter] 79 69 62 Respiratory Rate 16 Blood Pressure Blood Pressure [AR M LEFT] 139/62 149/81 H 138/68 Pulse Oximetry 96 96 Oxygen Delivery Me thod Nasal Cannula Nasal Cannula Nasal Cannula Oxygen Flow Rate 1 1 1 10/15/22 16:31 10/15/22 17:00 10/15/22 20:25 Temperature 97.3 F L Pulse Rate Pulse Rate [Left A pical] Pulse Rate [Pulse Oximeter] 63 75 75 Respiratory Rate 18 18 Blood Pressure Blood Pressure [AR M LEFT] 140/77 H 145/84 H 110/66 Pulse Oximetry 93 83 L Oxygen Delivery Me thod Nasal Cannula Nasal Cannula Room Air Nasal Can nula Oxygen Flow Rate 1 1 10/15/22 23:00 10/16/22 03:00 10/16/22 07:45 Temperature 96.9 F L 97.7 F 97.8 F Pulse Rate Pulse Rate [Left A pical] 88 Pulse Rate [Pulse Oximeter] 63 73 97 Respiratory Rate 18 18 16 Blood Pressure Blood Pressure [AR M LEFT] 111/62 108/58 L 95/56 L Pulse Oximetry 93 93 97 Oxygen Delivery Me thod Room Air Room Air Room Air Oxygen Flow Rate 10/16/22 11:24 10/16/22 11:00 Temperature 97.8 F Pulse Rate 62 Pulse Rate [Left A pical] 84 Pulse Rate [Pulse Oximeter] 84 Respiratory Rate 16 16 Blood Pressure 135/82 Blood Pressure [AR M LEFT] 101/55 L Pulse Oximetry 95 Oxygen Delivery Me thod Room Air Oxygen Flow Rate DS: Data Data Completed and Pending Labs on day of discharge: Labs from last 24 hours 10/16/22 10/16/22 05:50 05:50 WBC 13.58 H RBC 3.57 L Hgb 10.4 L Hct 31.9 L MCV 89 MCH 29 MCHC 33 RDW Coeff of Derrick 13.5 Plt Count 194 Neut % (Auto) 85.6 H Lymph % (Auto) 4.4 L [place] % (Auto) 9.6 Eos % (Auto) 0.0 Baso % (Auto) 0.0 Neut # (Auto) 11.60 H Lymph # (Auto) 0.60 L [place] # (Auto) 1.30 H Eos # (Auto) 0.00 Baso # (Auto) 0.00 Sodium 136 Potassium 4.1 BUN 19 Creatinine 1.0 Estimated Creat Clear 31.60 Estimated GFR 56 Discharge Plan Discharge Disposition: Home, Self-Care Discharging Surgeon: Kp Banks Follow-Up Appointment: 1 week PO with MIGEL Prescriptions: New aspirin 81 mg tablet,delayed release (DR/EC) 81 mg PO BID Qty: 50 0RF Rx Instructions: Medication to help prevent blood clots postoperatively; take TWICE daily. acetaminophen 500 mg capsule 500 - 1,000 mg PO Q6H MDD 4000mg PRNQty: 100 0RF rivaroxaban 10 mg tablet 10 mg PO DAILY Qty: 4 0RF Rx Instructions: Medication for deep vein clot prevention post surgery. Complete this medication before starting Aspirin. sennosides-docusate sodium [Senna-S] 8.6-50 mg tablet 1 - 4 tab-cap PO BID PRN (Reason: constipation) Qty: 60 0RF Rx Instructions: Hold medication if experiencing loose stools. oxycodone 5 mg tablet 2.5 - 5 mg PO Q4-6H MDD 6 PRN (Reason: pain) Qty: 20 0RF Rx Instructions: Take as needed for postop pain: 2.5mg mild pain, 5mg moderate-severe pain; wean as tolerated. Continued latanoprost 0.005 % drops 1 drp ophthalmic (eye) HS Label Comments: Instill 1 drop into both eyes at bedtime dorzolamide-timolol 22.3-6.8 mg/mL drops 1 drp ophthalmic (eye) BID Label Comments: INSTILL ONE DROP INTO EACH EYE TWICE DAILY brimonidine 0.15 % drops 1 drp ophthalmic (eye) BID Label Comments: Instill 1 drop into both eyes twice daily biotin 5,000 mcg tablet, sublingual 5,000 mcg sublingual QDAY calcium carbonate [Calcium 500] 500 mg calcium (1,250 mg) tablet,chewable 500 mg PO DAILY estradiol [Yuvafem] 10 mcg tablet 10 mcg vaginal 2XW PRN alendronate 70 mg tablet 70 mg PO .WEEKLY Activity Level: Activity as Tolerated, Weight Bearing as Tolerated, Use Cane and Use Walker Activity Detail: Wound: ?Do not remove original dressing; we will remove this at first postop visit in 1 week. Only remove dressing if integrity is in question. ?No immersing wound in water; showering okay; light scrub with your hand and body soap, rinse, dab dry ?Sutures are under the skin, will dissolve; allow surgical glue to come off naturally; do not scrub the wound or apply ointments/lotions ?Call our office with any redness that streaks, excessive drainage from the wound, or wound gapping. Ice/Elevate: ?Ice as needed for swelling and discomfort (cryocuff or ice pack); elevate frequently above the heart JOAN socks: ?Wear for 1 month, remove for 1 hour 3 times per day ?These are frustrating to take on/off, but are important for blood clot prevention for 1 month after surgery Blood Clot Prevention (DVT): ?Medication: Rivaroxaban, and transition to 81 mg aspirin by mouth twice daily (total one month of protection). Driving: ?Do not drive while taking narcotic pain medication ?Anticipate 4-6 weeks no driving if operative leg is driving leg Dental: ?No elective dental work for 6 months post-op. If there is an urgent/emergent dental need, contact our office for an antibiotic prescription. Smoking/Alcohol: ?Do not smoke; do no drink alcohol especially when taking postoperative oral narcotic medication Seek Care from you Primary Care Provider if you experience the following issues in the postoperative phase and beyond: ?Bacterial infections such as: pneumonia, bacterial skin infection (cellulitis), UTI, high fever, chills unrelated to the operative body part - call your primary care physician urgently for treatment in hopes to protect your health and the metal implant. Referrals: ?PT, OT per patient preference - evaluate treat total hip arthroplasty protocol (gait training, ROM, ADLs) Follow up: ?Ortho surgeon follow-up in 6 weeks; repeat radiographs AP pelvis, cross-table lateral operative hip ?PA-C visit in 1 week *If there are any acute concerns regarding your surgery, please call our orthopedic clinic ([phone]) Discharge Diet: Regular Patient Instructions: Acetaminophen (By mouth), Aspirin (By mouth), Oxycodone, Rapid Release (By mouth), Rivaroxaban (By mouth), Senna (By mouth) (Sen, Senna-lax), Total Hip Replacement (DC) Forms: Work/School Release Follow-up: Cris Puente MD [Primary Care Provider] - Virgilio Wall PA-C [Physician Day Care Home Provider] - 10/25/22 8:50 am Discharge Orders: Discharge Order (Routine); Ordered 10/16/22 Ordered By: Virgilio Wall
--- NOTE | 2022-10-16 14:05 | PC.NURSE ---
Pt eval by OT, PT, Dr. Riggs, Virgilio ortho PA and myself this am. Pt hesitant to take pain medications, rating her pain 0 plus out of 10. Tolerating regular diet, adequate I and O. counseled by Ed in PT about need for SBA with AYA when ambulating d/to tendency of right knee to buckle. Third dose of IV Cefazolin infused w/o difficulty. IV site discontinued right forearm. Pt verbalized understanding of d/c diagnosis, home meds, pain management plans, f/up appts, wound care and sx to report urgently to physician. Pt d/c'ed with her personal belongings via w/c @ 12:44 pm to her own home with spouse Aubrey as transportation
== END 2022-10-16 12:44 | disposition home or self-care (01) ==
LOC: OR 06:47 → MEDSURG 06:52
PROVIDERS: PCP Internal Medicine; Visit Provider Orthopaedic Surgery Sports Medicine
PROC: (CPT 27130; principal; 2022-10-15 08:15)
DX: M16.11 Unilateral primary osteoarthritis, right hip (principal); R19.7 Diarrhea, unspecified
CPT/HCPCS: 27130; 01214; 36415; 64450; 73501; 76000; 76942; 82565; 84132; 84295; 84520; 85025; 97110; 97116; 97161; 97162; 97165; 97530; 97535; 99100; A9270; C1713; C1776; J0690; J1100; J2250; J2370; J2405; J2704; J2795; J3010; J7120

== ENCOUNTER 2022-10-16 17:38 | Emergency (ER) | payer MEDICARE, OTHER, SELFPAY ==
[2022-10-16 17:48] VITALS: BP 135/70; PULSE 70; TEMP 36.6; O2SAT 99; BMI 22.3
--- NOTE | 2022-10-16 18:05 | ED_ITS ---
HPI - General Adult General Time Seen by Provider: 18:05 Date Seen: 10/16/22 Chief complaint: Fall/Minor Trauma Stated complaint: fell after hip replacment Time Seen by Provider: 10/16/22 18:04 Source: patient and RN notes reviewed Mode of arrival: ambulatory (With walker) Limitations: no limitations History of Present Illness HPI narrative: Patient is an 82-year-old female that was just discharged after a right hip replacement from the hospital today. She was at home, using her walker to get into the chair when she fell. She lost her balance. She states she did not get close enough to the chair. She has increased pain in the right upper leg. She states she injured or sprained her ankle doing this 2 but the ice that right away. She took some Tylenol just prior to coming in. Declines any need for pain medicine. She did not hit her head, no loss of consciousness. She does not hurt in her arms her upper body or her abdomen. Nothing was injured on her left side. Related Data Home Medications Medication Instructions Recorded Confirmed biotin 5,000 mcg sublingual tablet 5,000 mcg sublingual QDAY 07/24/22 10/15/22 brimonidine 0.15 % eye drops 1 drp ophthalmic (eye) BID 07/24/22 10/15/22 calcium carbonate 500 mg calcium 500 mg PO DAILY 07/24/22 10/15/22 (1,250 mg) chewable tablet (Calcium 500) dorzolamide 22.3 mg-timolol 6.8 1 drp ophthalmic (eye) BID 07/24/22 10/15/22 mg/mL eye drops latanoprost 0.005 % eye drops 1 drp ophthalmic (eye) HS 07/24/22 10/15/22 estradiol 10 mcg vaginal tablet 10 mcg vaginal 2XW PRN 07/31/22 10/15/22 (Yuvafem) alendronate 70 mg tablet 70 mg PO .WEEKLY 10/11/22 10/15/22 Previous Rx's Medication Instructions Recorded acetaminophen 500 mg capsule 500 - 1,000 mg PO Q6H PRN #100 caps 10/16/22 aspirin 81 mg tablet,delayed 81 mg PO BID #50 tabs 10/16/22 release oxycodone 5 mg tablet 2.5 - 5 mg PO Q4-6H PRN pain #20 10/16/22 tabs rivaroxaban 10 mg tablet 10 mg PO DAILY #4 tabs 10/16/22 sennosides 8.6 mg-docusate sodium 1 - 4 tab-cap PO BID PRN 10/16/22 50 mg tablet (Senna-S) constipation #60 tabs Allergies Allergy/AdvReac Type Severity Reaction Status Date / Time Sulfa (Sulfonamide Allergy shock Verified 10/15/22 07:01 Antibiotics) Review of Systems Status of ROS: Reports: 6 or more systems reviewed and unremarkable except as noted in History and below PFSH PFSH Surgical History H/O laparoscopy History of hip replacement History of tonsillectomy (03/27/12) Family History Father Heart problem COPD (chronic obstructive pulmonary disease) Mother Heart problem Brother Aortic valve replaced Kidney disease Sister Lupus Social History Narrative: She lives with her in [place]. They have a house with multiple levels. One step to get into the house from the garage. Three steps to get from the entry to the kitchen. Nine steps to get from the kitchen to the bedroom and bathroom. She does not smoke. She rarely drinks alcohol. No recreational drug use. is healthcare power of associate attorney. Code status is full Smoking Status: Never smoker Do you use any of these nicotine containing products: None How often do you have a drink containing alcohol: 2-4 times a month Alcohol type: beer How many standard drinks containing alcohol do you have on a typical day: 1 or 2 AUDIT-C Alcohol total score: 2 Non-prescribed substance use: denies use Caffeine: Yes (coffee, 1-2 cups/day) Little interest or pleasure in doing things: several days Feeling down, depressed, or hopeless: several days Exam Const: Vital Signs, click to edit/add: Vital Signs - 24 hr 10/16/22 17:48 Temperature 97.9 F Pulse Rate [Pulse Oximeter] 70 Blood Pressure [Ri ght Upper Arm] 135/70 Pulse Oximetry 99 Oxygen Delivery Me thod Room Air Documenting provider has reviewed patient's vital signs: yes Common normals: no apparent distress, oriented x3, no limitations, healthy appearing, alert and well nourished General appearance: cooperative, comfortable, well kempt and well developed Nutritional appearance: thin Other: Patient is lying in the bed in exam room 2, looks very comfortable and is certainly pleasant. HENMT: Common normals: normocephalic, head/scalp atraumatic and hearing grossly normal bilaterally Head and scalp: normocephalic and atraumatic Eye: Common normals: PERRL, EOMs intact bilaterally, conjunctivae normal and no scleral icterus Conjunctiva: conjunctiva(e) normal Pupil: PERRL Neck & C-Spine: Common normals: full ROM, supple and no JVD Resp: Common normals: normal respiratory effort, no retractions, no use of accessory muscles and clear to auscultation bilaterally Auscultation: clear to auscultation bilaterally Cardio: Common normals: no JVD, regular rate, regular rhythm, S1 normal heart sound, S2 normal heart sound, no gallops, no clicks and no murmurs Rate: regular rate Rhythm: regular rhythm Heart sounds: S1 normal and S2 normal GI: Common normals: Normal to inspection, nondistended, normoactive bowel sounds present, soft to palpation, non-tender, no hepatosplenomegaly and no masses Palpation: soft and no hepatosplenomegaly Extremity: Other: Her legs have equal length. She gently can roll her right leg back and forth without any pain. The surgical site is covered with a dressing, no concerns with the wound at this time. She complains of pain in the mid portion of her femur area. The upper thigh a is generally swollen and would be from postsurgical status. She cannot straight leg lift her leg off the bed but has not reportedly done this or been able to do this since surgery. Patella seems to be in a normal alignment, no pain about her knee joint or effusion at this time. She is not tender when I palpate down the tibia or fibula. Her ankle has no swelling, does not have any general tenderness when I palpate through the ankle but does state that it did hurt at home. Neurovascular distally is intact. Can mobilize the toes without any difficulty, no pain over the metatarsals or midfoot. Neuro: Milana Coma Scale: document GCS findings Milana coma scale eye opening: Spontaneous (4) [place] coma scale verbal response: Orientated (5) Milana coma scale motor response: Obey commands (6) Milana coma scale total score: 15 Common normals: oriented x3 Sensorium/orientation: alert Psych: Appearance: well kempt Course Course Hospital Course: We will look at pelvis and right hip, right femur and her right ankle. She is not apparently dislocated on my clinical exam. With her having significant femur pain, do wonder about underlying fracture that she could have sustained. Will rule out fracture in her right ankle as well. She declines pain management at this time and does look comfortable to me. Reevaluation(s) Reevaluation #1: Reviewed negative films with patient and her , will discharge to home. Time: 19:40 Consultations Consultation #1: Spoke with ortho CATINA Curtis. There was air on the postoperative images from her surgery. At this time, we are going to discharge her to home with ongoing out patient observation. No concern for infection. She does have postoperative follow-up coming up soon per Kirsten. Time: 19:39 Vital Signs Vital signs: Initial Vital Signs Temperature 97.9 F 10/16/22 17:48 Temperature Source Temporal Artery Scan 10/16/22 17:48 Pulse Rate 70 10/16/22 17:48 Blood Pressure 135/70 10/16/22 17:48 Blood Pressure Mean 91 10/16/22 17:48 Blood Pressure Position Sitting 10/16/22 17:48 Pulse Oximetry 99 10/16/22 17:48 Oxygen Delivery Method 10/16/22 17:48 Vital Signs Temperature 97.9 F 10/16/22 17:48 Pulse Rate 70 10/16/22 17:48 Blood Pressure 135/70 10/16/22 17:48 Pulse Oximetry 99 10/16/22 17:48 Oxygen Delivery Method 10/16/22 17:48 Temperature 97.9 F 10/16/22 17:48 Pulse Rate 70 10/16/22 17:48 Blood Pressure 135/70 10/16/22 17:48 Pulse Oximetry 99 10/16/22 17:48 Oxygen Delivery Method 10/16/22 17:48 Medical Decision Making Imaging Data X-ray right hip and pelvis: Attestation: I have reviewed the pertinent imaging results. Radiologist's impression: Patient: MICHAEL COLE Facility:[facility] Patient ID:?[id number] Site Patient ID:?[id number]. Site :?[id number] Study:?XRay Pelvis -10/16/2022 6:48:58 PM Ordering Physician:Latonia Kennedy Final Report: INDICATION: Fall and injury, status post right hip replacement yesterday. TECHNIQUE: AP pelvis. COMPARISON: Pelvis and right hip radiographs 10/15/2022. FINDINGS: No acute fracture identified. The hips appear normally aligned. Right total hip arthroplasty appears intact and stable in position. Postoperative soft tissue gas about the right hip. The sacroiliac joints are normal in appearance. IMPRESSION: 1. No acute findings. 2. Intact right JANE with postoperative soft tissue gas. Dictated by Zabrina Cummins MD @ 10/16/2022 7:11:52 PM (Electronic Signature) X-ray right femur: Attestation: I have reviewed the pertinent imaging results. Radiologist's impression: Patient: MICHAEL COLE Facility:[facility] Patient ID:?[id number] Site Patient ID:?[id number]. Site :?[id number] Study:?XRay Extremity Right FEMUR 2V-10/16/2022 6:49:53 PM Ordering Physician:?Rigo Kennedy Final Report: INDICATION: Fall and injury, status post right hip replacement yesterday. TECHNIQUE: Right femur 4 views. COMPARISON: Pelvis and right hip radiographs 10/15/2022. FINDINGS: No acute fracture or dislocation. Right total hip arthroplasty appears intact and stable in position. No radiographic evidence of loosening. Soft tissue gas about the right hip is likely postoperative in nature. There is also a large amount of soft tissue gas extending throughout the right thigh musculature. No knee joint effusion. Spurring of the patella. IMPRESSION: 1. No acute fracture. 2. Intact right JANE without evidence of hardware failure. 3. Large amount of soft tissue gas extending throughout the right thigh musculature. Correlate clinically for signs of infection. Dictated by Zabrina Cummins MD @ 10/16/2022 7:16:05 PM (Electronic Signature) X-ray right ankle: Attestation: I have reviewed the pertinent imaging results. Radiologist's impression: Patient: MICHAEL COLE Facility:?[facility] Patient ID:?[id number] Site Patient ID:?[id number]. Site :?[id number] Study:?XRay Extremity Right ANKLE 3 VIEW-10/16/2022 6:49:21 PM Ordering Physician:Latonia Kennedy Final Report: IMPRESSION: Fall and injury. TECHNIQUE: Right ankle 3 views. COMPARISON: None. FINDINGS: The posterior calcaneus is not fully imaged on lateral view. No acute fracture or dislocation. Ankle mortise is symmetric. Subchondral cystic change in the medial talar dome may be degenerative in nature. Soft tissues are unremarkable. IMPRESSION: No acute findings. Dictated by Zabrina Cummins MD @ 10/16/2022 7:18:43 PM (Electronic Signature) Critical Care Time Critical Care Time Critical Care Time: No Discharge Plan Discharge Clinical Impression: Status post total replacement of right hip, Fall Patient Disposition: Home, Self-Care Condition: Stable Additional Instructions: Continue to use your walker at home. Continue to follow postoperative recommendations from the Orthopedic discharge summary. No changes in the postoperative plan or medicines. Prescriptions: No Action latanoprost 0.005 % drops 1 drp ophthalmic (eye) HS Label Comments: Instill 1 drop into both eyes at bedtime dorzolamide-timolol 22.3-6.8 mg/mL drops 1 drp ophthalmic (eye) BID Label Comments: INSTILL ONE DROP INTO EACH EYE TWICE DAILY brimonidine 0.15 % drops 1 drp ophthalmic (eye) BID Label Comments: Instill 1 drop into both eyes twice daily biotin 5,000 mcg tablet, sublingual 5,000 mcg sublingual QDAY calcium carbonate [Calcium 500] 500 mg calcium (1,250 mg) tablet,chewable 500 mg PO DAILY estradiol [Yuvafem] 10 mcg tablet 10 mcg vaginal 2XW PRN alendronate 70 mg tablet 70 mg PO .WEEKLY aspirin 81 mg tablet,delayed release (DR/EC) 81 mg PO BID Qty: 50 0RF Rx Instructions: Medication to help prevent blood clots postoperatively; take TWICE daily. acetaminophen 500 mg capsule 500 - 1,000 mg PO Q6H MDD 4000mg PRNQty: 100 0RF rivaroxaban 10 mg tablet 10 mg PO DAILY Qty: 4 0RF Rx Instructions: Medication for deep vein clot prevention post surgery. Complete this medication before starting Aspirin. sennosides-docusate sodium [Senna-S] 8.6-50 mg tablet 1 - 4 tab-cap PO BID PRN (Reason: constipation) Qty: 60 0RF Rx Instructions: Hold medication if experiencing loose stools. oxycodone 5 mg tablet 2.5 - 5 mg PO Q4-6H MDD 6 PRN (Reason: pain) Qty: 20 0RF Rx Instructions: Take as needed for postop pain: 2.5mg mild pain, 5mg moderate-severe pain; w velia as tolerated. Follow Up/Referrals: Cris Puente MD [Primary Care Provider] - Stand Alone Forms: [employer] Info Instructions
--- NOTE | 2022-10-16 18:11 | XR_ITS ---
Patient: MICHAEL COLE Facility:?[facility] Patient ID:?[id number] Site Patient ID:?[id number]. Site :?[id number] Study:?XRay-Extremity Right FEMUR 2V-10/16/2022 6:49:53 PM Ordering Physician:Latonia Kennedy Final Report: INDICATION: Fall and injury, status post right hip replacement yesterday. TECHNIQUE: Right femur 4 views. COMPARISON: Pelvis and right hip radiographs 10/15/2022. FINDINGS: No acute fracture or dislocation. Right total hip arthroplasty appears intact and stable in position. No radiographic evidence of loosening. Soft tissue gas about the right hip is likely postoperative in nature. There is also a large amount of soft tissue gas extending throughout the right thigh musculature. No knee joint effusion. Spurring of the patella. IMPRESSION: 1. No acute fracture. 2. Intact right JANE without evidence of hardware failure. 3. Large amount of soft tissue gas extending throughout the right thigh musculature. Correlate clinically for signs of infection. Dictated by Zabrina Cummins MD @ 10/16/2022 7:16:05 PM Signed by:?Zabrina Cummins MD @10/16/2022 7:16:05 PM (Electronic Signature)
--- NOTE | 2022-10-16 18:11 | CRLHL7_ITS ---
For Patients: As a result of the Cures Act, medical imaging exams and procedure reports are released immediately into your electronic medical record. You may view this report before your referring provider. If you have questions, please contact your health care provider. INDICATION: Fall and injury, status post right hip replacement yesterday. TECHNIQUE: AP pelvis. COMPARISON: Pelvis and right hip radiographs 10/15/2022. FINDINGS: No acute fracture identified. The hips appear normally aligned. Right total hip arthroplasty appears intact and stable in position. Postoperative soft tissue gas about the right hip. The sacroiliac joints are normal in appearance. IMPRESSION: 1. No acute findings. 2. Intact right JANE with postoperative soft tissue gas. Dictated by Zabrina Cummins MD @ 10/16/2022 7:11:52 PM (Electronically Signed)
--- NOTE | 2022-10-16 18:11 | CRLHL7_ITS ---
For Patients: As a result of the Cures Act, medical imaging exams and procedure reports are released immediately into your electronic medical record. You may view this report before your referring provider. If you have questions, please contact your health care provider. IMPRESSION: Fall and injury. TECHNIQUE: Right ankle 3 views. COMPARISON: None. FINDINGS: The posterior calcaneus is not fully imaged on lateral view. No acute fracture or dislocation. Ankle mortise is symmetric. Subchondral cystic change in the medial talar dome may be degenerative in nature. Soft tissues are unremarkable. IMPRESSION: No acute findings. Dictated by Zabrina Cummins MD @ 10/16/2022 7:18:43 PM (Electronically Signed)
--- NOTE | 2022-10-16 18:25 | PC.NURSE ---
pt to radiology via cart, ice pack to left hip. 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
[2022-10-16 19:52] VITALS: BP 136/75; PULSE 90; RESP 16; TEMP 36.1; O2SAT 98
== END 2022-10-16 19:52 | disposition home or self-care (01) ==
PROVIDERS: Emergency Provider Family Medicine; PCP Internal Medicine
DX: G89.18 Other acute postprocedural pain (principal); Z96.641 Presence of right artificial hip joint; W19.XXXA Unspecified fall, initial encounter
CPT/HCPCS: 72170; 73552; 73610; 99283; 99284

== ENCOUNTER 2023-02-20 15:30 | Outpatient (RCR) | payer MEDICARE, OTHER, SELFPAY ==
--- NOTE | 2022-10-22 16:33 | PT.OPEX ---
PT [place] Outpatient Eval PT [facility] Outpatient Eval Start: 10/22/22 16:26 Freq: Status: Active Protocol: Document 10/11/22 16:27 SHAHBAZ (Rec: 10/22/22 16:29 SHAHBAZ [id number]) E-signed By Stepehn Watson DPT, MS Physical Therapy Outpatient Evaluation Insurance Information Recert Due Date 01/09/23 Insurance Name Medicare B,Blue Cross/Blue Shield Medical Diagnosis Pre-op R JANE Treating Diagnosis R hip pain, decreased R LE flexibility and ROM, imbalance , gait dysfunction and B (R>L) LE weakness Subjective Subjective Pt is an 81 y.o female who presents to PT prior to R anterior JANE on 10/15/22 at [facility] . Describes R hip, groin and thigh pain have gradually increased over the past 18 months. R hip joint space decreased significantly after a fall ~1 month ago. Has felt very weak with decreased energy after an illness 2-3 weeks ago with severe diarrhea but was negative for covid. Uses 4WW on painful days and must limp without an AD. Pt lives with her in a multi-level home with 3 steps with 1 railing to enter her home. Bedroom and bathroom on second level with a railing on the R. Currently performs stairs with step-to pattern. Pt hopes to return to walking for exercise and performing normal daily activities after surgery. PMH includes osteoporosis and R hip OA. AGGR factors: walking, standing, sleeping, stair climbing, uneven surfaces. ALLEV factors: rest, Tylenol, ice. Pain Comments 0-6/10 Current Work Status Retired Preferred Name [employer] Precautions Therapy Limitations/Systems Review Not Limited Objective Functional Test Performed & Score LEFS: 12 Assessment Assessment/Impression Pt responded well to introduction of pre-op and post-op HEP today with fatigue and no elevation in R hip sxs . Good quality of QS and SLR with pt encouraged to perform her HEP regularly prior to surgery. Good home setup with help available for pt following surgery. She will resume PT following R THAs and we will re-evaluate pt following surgery. Primary Functional Limitations walking, standing, sleeping, stair climbing, uneven surfaces. Plan of Care Rehabilitation Potential Excellent Physical Therapy Goals Short-term goals to be completed in 1 week: 1. Pt will be independent and compliant with her HEP in preparation for surgery. Coordination/Communication With Referral Source Treatment Plan/Direct Interventions Gait Training,Joint Mobilization,Manual Therapy, Neuromuscular Re-ed, Therapeutic Exercises Frequency/Duration 1 visit prior to surgery then 1-2x per week for least 8-12 visits, decreasing visit frequency as able following surgery. Patient Will Be Discharged From Therapy Completion of LTG(s),Skills Plateau,Independent w/HEP, Independently Progressing Evaluation Billing Untimed Code Treatment Minutes 28 Complexity Moderate Certification Information Initial Certification Date 10/11/22 Ending Certification Date 01/09/23 Provider Signature Shows Agreement With POC & Medical Necessity Physician Signature & Date Requested Please Sign/Date Here Physician Comment/Change : Physician NPI Number #
--- NOTE | 2023-01-23 15:21 | PT.OPDNX ---
[facility] Daily [facility] Start: 10/22/22 15:23 Freq: Status: Active Protocol: Document 01/22/23 14:00 [email or web address] (Rec: 01/23/23 15:21 [facility] [id number]) E-signed By CATRACHO AlvarezT, MS PT OP Daily Progress Note Visit Information Note Type Recert/Progress Note Visit Number [id number] Insurance Authorized Visits - Physician Authorized Visits Eval and treat Insurance Information Recert Due Date 01/09/23 Insurance Name Medicare B,[employer] Medical Diagnosis Post-op anterior R JANE Treating Diagnosis R hip pain, decreased R LE flexibility and ROM, imbalance , gait dysfunction and B (R>L) LE weakness Subjective Subjective Pt reports she had a setback in her recovery last week after shopping for 2.5-3 hours with significant quad tightness and ankle pain/ swelling upon waking the next morning. Had only walked for 10-15 min max before this. dx her with a sprained ankle after rolling her ankle the first day returning home. Pain Comments 0-5/10 R ankle and quad Preferred Name Aya Precautions Weight Bearing Status Weight Bear as Tolerated Objective Other/Pertinent Objective Hip AROM Flexion: right 105 deg with pain, left 112 deg Extension: right 4 deg, left 6 deg ER: right 32 deg, left 40 deg IR: right 28 deg, left 35 deg Strength Hip flex: R 4/5, L 5/5 Knee ext: R 4+/5, L 5/5 Knee flex: R 4+/5, L 5/5 Hip ABD: R 4-/5, L 4/5 Hip ext: R 4/5, L 4+/5 Eversion: R 4/5, L 4+/5 Inversion: R 4/5, L 5/5 Palpation: tenderness R ATFL Gait: without AD decreased velocity, decreased R toe off and decreased R stride length Stairs: good reciprocal pattern ascending and step-to pattern descending 8 steps with 1 railing. Posture: Good I standing posture Swelling: None Sensation: light touch intact bilat LE Other: HS 90-90: B lacking 20 deg Functional Test Performed & Score LEFS: 26 Patient Instructed in Risks/Benefits Yes Therapeutic Exercise Therapeutic Exercise Minutes (minutes) 45 Therapeutic Exercise: To Restore Seated heel slides. Functional Status Standing hip ABD at counter decreased light finger tip support 6 x 3. Emphasized importance of B performance since she had only performed standing on L. SLS at counter light B UE support emphasizing importance Partial tandem balance at counter heel next to big toe B 15 x 3 B Progressed to eversion YTB. Provided RTB for progression Progressed to heel-toe walking next to wall Gastroc stretch at counter Recumbent bike L3 resistance x 7 min Progressed to squats at counter 10 x 3 Progressed to leg press B 60# 12 x 3 Progressed to walking november next to wall 20' x 6, 3 sets Progressed to side stepping 20 ' x 6, 2 sets Decreased to supine alt november; SLR caused elevated pain Treatment Minutes Timed Code Treatment Minutes 45 Total Treatment Time 45 Billing Units Therapeutic Exercise Units 3 Assessment/Impression Assessment/Impression Pt displays elevated R quad, glute and peroneal tightness and weakness today after significant walking and standing leading to decreased R LE strength and gait compensations. Pt's inversion CHRISTA ankle sprain 2 days post op appears to have contributed to elevated R LE sxs. Reviewed importance of slowly progressing time in WBing positions as she remains deconditioned after years of limited activity due to R hip issues. Able to modify and progress weight machine resistance, static and dynamic balance, and strengthening exercises today with fatigue but overall good darian. She remains weak with deconditioning with again improved darian to uni WBing through R LE. Imbalance and visual impairments from glaucoma leading to continued gait dysfunction. Good response to again recumbent bike and HEP progressions with fatigue following. She is making slower than typical towards all PT goals due to her age and deconditioning prior to surgery and will benefit from continued skilled PT intervention to help pt improve darian to functional daily activities. Plan of Care Physical Therapy Goals Short-term goals to be completed in 4 weeks: 1. Pt will report improved quality of sleep waking <2x per night due to R hip pain. MET 2. Pt will display improved R LE strength as evidenced by performing >10 SLR of good quality to improve quality of gait. Progressing 3. Pt will be able to sit for >15 minutes with minimal R hip pain to safely drive to medical appointments. MET Long-term goals to be completed in 20 weeks: 1. Pt will be independent and compliant with HEP. Progressing 2. Pt will be able to walk for >8 minutes with no elevation in R hip pain to improve cardiovascular fitness. Progressing 3. Pt will display improved R hip flex, ABD and ext strength of >/= 4+/5 to improve quality of gait. Progressing 4. Pt will report >75% improvement in LEFS questionnaire to significantly improve tolerance to functional activities. Progressing Daily Plan of Care Continue per POC Daily Plan of Care Comments Progress R LE flexibility, gait training, balance and strength, as able. Recertification Information Initial Certification Date 10/11/22 Recertification Start Date 01/09/23 Recertification Due Date 04/09/23 Reasons to Continue Skilled Therapy See assessment Rehabilitation Potential Excellent Continued Plan of Care and Interventions Continued TE, MT and NM re-ed 1x per week for 4-8 additional PT visits, decreasing visit frequency as able. Provider Signature Shows Agreement With POC & Medical Necessity Physician Comment/Change Comment or Changes Physician NPI Number #
== END 2023-06-20 23:59 | disposition home or self-care (01) ==
PROVIDERS: PCP Internal Medicine; Visit Provider Orthopaedic Surgery Sports Medicine
DX: M16.11 Unilateral primary osteoarthritis, right hip (principal); Z96.641 Presence of right artificial hip joint; M25.551 Pain in right hip; R26.81 Unsteadiness on feet; Z74.09 Other reduced mobility; R26.9 Unspecified abnormalities of gait and mobility; R53.1 Weakness; Z51.89 Encounter for other specified aftercare
CPT/HCPCS: 97110; 97140; 97162; 97164